=== PATIENT | female | born 1955 | race Caucasian/White ===

== ENCOUNTER 2017-07-16 11:53 | Emergency (ER) | payer MEDICARE, MEDICAID ==
[~2017-07-16] VITALS: Ht 167.6 cm; Wt 83.6 kg
[~2017-07-16 11:53] MED LIST: ACET325T14 PO; ALBU2.5V NEB; ALLO300T PO; ASPI-496 PO; ASPI-650 PO; BACL-19 PO; BISA10SU54 PR; CALC-141 PO; CALC650T7 PO; CLOB15CR19 TP; DOCU100C33 PO; ERGO500017 PO; FAMO20TA7 PO; FLUD0.1T PO; FLUO20CA8 PO; FOLI1CAP9 PO; GABA-826 PO; HYDR-3237 PO; HYDR-3245 PO; LEVE10007 PO; LEVE500T53 PO; LEVO137T3 PO; LEVO75TA PO; LIDO5CRE14 TP; LIOT25TA3 PO; LORA1TAB PO; LORA2VIA4 PO; LOVA40TA2 PO; METH500T7 PO; ONDA4VIA4 PO; PANT40TA3 PO; POLY17PO5 PO; PSEU60TA PO; RALO60TA PO; SENN1TAB7 PO; TIOT18CA INH; WARF1TAB7 PO; WARF6TAB7 PO; ZOLP10TA PO
[2017-07-16] MEDS ORDERED: SODIUM CHLORIDE 0.9%, 250ML IVBOLUS ONE (14:00)
[2017-07-16 15:41] VITALS: BP 91/45
== END 2017-07-16 15:43 | disposition home or self-care (01) ==
LOC: ED 15:35
DX: J06.9 Acute upper respiratory infection, unspecified (principal); I95.3 Hypotension of hemodialysis; J44.9 Chronic obstructive pulmonary disease, unspecified; K21.9 Gastro-esophageal reflux disease without esophagitis; E78.5 Hyperlipidemia, unspecified; E87.5 Hyperkalemia; M19.049 Primary osteoarthritis, unspecified hand; I10 Essential (primary) hypertension; Z86.718 Personal history of other venous thrombosis and embolism; Z90.49 Acquired absence of other specified parts of digestive tract; Z87.891 Personal history of nicotine dependence
CPT/HCPCS: 71046; 96360; 99284; J7050

== ENCOUNTER 2018-05-18 08:38 | Inpatient (IN) | payer MEDICARE, MEDICAID ==
[~2018-05-18] VITALS: Ht 167.6 cm; Wt 86.5 kg
[~2018-05-18 08:38] MED LIST changes: -LORA2VIA4 PO; +LORA2VIA6 PO; -ONDA4VIA4 PO; +ONDA4VIA8 PO; -SENN1TAB7 PO; +SENN1TAB8 PO; -WARF1TAB7 PO; +WARF1TAB74 PO; +WARF6TAB47 PO; -WARF6TAB7 PO
--- NOTE | 2018-05-18 08:52 | NUR ---
62 YR OLD FEMALE ARRIVED VIA EMS WITH C/O WEAKNESS AND PRODUCTIVE COUGH WITH GOULD PHLEGM FOR LAST COUPLE OF DAYS. PT RECEIVED DIALYSIS ON WEDNESDAY WAS DUE TODAY AT 0500. PT IN NO ACUTE DISTRESS. PLACED ON MONITORS. PORTABLE CXR COMPLETED.
--- NOTE | 2018-05-18 09:09 | NUR ---
SBAR RPT REC'D FROM ANTONIO COLLINS. ASSUMED PT CARE.
--- NOTE | 2018-05-18 09:17 | NUR ---
DR ROMERO AT BEDSIDE. PT C/O DUVALL STATES IT STARTED AFTER SHE WAS PLACED ON OXYGEN. CURRENT SP02 96% ON 2L, O2 DECREASED TO 1L. PT ASSESSMENT REVIEWED, POC DISCUSSED.
[2018-05-18] MEDS ORDERED: methylPREDNISolone SOD SUCC 125 MG/2 ML IVP ONE (09:30)
[2018-05-18] MEDS ORDERED: SODIUM CHLORIDE FLUSH 10ML SYR IVF ONE (09:30)
[2018-05-18] MEDS ORDERED: ALBUTEROL SULFATE 2.5 MG/3 ML NPPB ONE (09:30)
[2018-05-18] MEDS ORDERED: ALBUTEROL SULFATE 2.5 MG/3 ML ONE (09:33)
[2018-05-18] MEDS ORDERED: methylPREDNISolone SOD SUCC 125 MG/2 ML ONE (09:42)
--- NOTE | 2018-05-18 09:46 | NUR ---
RT AT BEDSIDE. BREATHING TREATMENT IN PROGRESS. PT TO TRIAL ON RA FOLLOWING TREATMENT
[2018-05-18 09:50] LABS: BASOPHILS # (AUTO) 0.02 x10^3/uL (0-0.1); BASOPHILS % (AUTO) 0 % (0-1); EOSINOPHILS % (AUTO) 0 % (1-7); LYMPHOCYTES # (AUTO) 0.58 x10^3/uL (1-3.4); LYMPHOCYTES % (AUTO) 7 % (22-44); MD NO; MEAN CORPUSCULAR HEMOGLOBIN 34.9 pg (27.0-34.8); MEAN CORPUSCULAR HGB CONC 32.5 g/dL (32.4-35.8); MEAN CORPUSCULAR VOLUME 107.1 fL (80-100); MEAN PLATELET VOLUME 6.9 fL (7.4-10.4); MONOCYTES # (AUTO) 0.37 x10^3/uL (0.2-0.8); MONOCYTES % (AUTO) 5 % (2-9); NEUTROPHILS # (AUTO) 7.26 x10^3/uL (1.8-6.8); NEUTROPHILS % (AUTO) 88 % (42-75); PLATELET COUNT 172 x10^3/uL (130-400); RED BLOOD COUNT 3.48 x10^6/uL (3.82-5.3); RED CELL DISTRIBUTION WIDTH 16.7 % (9.6-15.2)
--- NOTE | 2018-05-18 10:16 | NUR ---
PT TRIALED ON RA, SP02 = 85, 02 1.5L NC PLACED WITH EFFECT. TOYA AGUIRRE UPDATED.
[2018-05-18 10:25] LABS: TROPONIN I 0.024 ng/mL (0.000-0.045)
[2018-05-18 10:33] LABS: ALBUMIN 3.2 g/dL (3.4-5.0); ANION GAP 10 mmol/L (5-15); CALCIUM 8.2 mg/dL (8.5-10.1); CHLORIDE 97 mmol/L (98-107)
[2018-05-18 10:35] LABS: ALANINE AMINOTRANSFERASE 21 U/L (12-78); CREATININE 8.63 mg/dL (0.55-1.02)
[2018-05-18 10:37] LABS: ALKALINE PHOSPHATASE 84 U/L (45-117); BILIRUBIN,TOTAL 0.4 mg/dL (0.2-1.0); TOTAL PROTEIN 6.5 g/dL (6.4-8.2)
--- NOTE | 2018-05-18 11:15 | NUR ---
PT RESTING WITH EYES CLOSED, 30 SEC PERIODS OF SLEEP APNEA NOTED WITH SP02 DROP TO 87%, RECOVERS W/O INTERVENTION. PT ARROUSES TO VERBAL STIM. NAD NOTED. CALL LIGHT W/I REACH. PT AWARE OF PLAN FOR HOSPITAL ADMISSION
[2018-05-18 12:48] VITALS: BP 86/55
[2018-05-18] MEDS ORDERED: GABAPENTIN 300 MG CAPSULE PO PRN (14:30)
[2018-05-18] MEDS ORDERED: DOCUSATE 100 MG CAPSULE PO PRN (14:30)
[2018-05-18] MEDS ORDERED: morphine SULFATE 10 MG/ML, 1ML IVPush PRN (14:30)
[2018-05-18] MEDS ORDERED: POLYETHYLENE GLYCOL 17 GM PACKET PO PRN (14:30)
[2018-05-18] MEDS ORDERED: hydrALAzine 20 MG/ML, 1ML IVPush PRN (14:30)
[2018-05-18] MEDS ORDERED: BISACODYL 10 MG SUPP PR PRN (14:30)
[2018-05-18] MEDS ORDERED: ACETAMINOPHEN 325 MG TABLET PO PRN (14:30)
[2018-05-18] MEDS ORDERED: LABETALOL 5MG/ML, 20ML IVPush PRN (14:30)
[2018-05-18] MEDS ORDERED: OXYcodone IR 5MG TABLET PO PRN (14:30)
[2018-05-18] MEDS ORDERED: ALBUTEROL/IPRATROPIUM 2.5MG/0.5MG, 3 ML ONE (15:32)
[2018-05-18 15:39] LABS: FREE T4 (FREE THYROXINE) 1.26 ng/dL (0.76-1.46); THYROID STIMULATING HORMONE 1.84 mIU/L (0.358-3.740)
[2018-05-18] MEDS: ALBUTEROL/IPRATROPIUM 2.5MG/0.5MG, 3 ML NPPB SCH ×2 (15:40→16:58)
[2018-05-18 15:45] LABS: HEMOGLOBIN A1C 4.9 % (4.2-6.3)
[2018-05-18] MEDS ORDERED: ALBUTEROL/IPRATROPIUM 2.5MG/0.5MG, 3 ML NPPB PRN (16:00)
[2018-05-18] MEDS ORDERED: MIDO5TAB2 PO (16:42)
[2018-05-18] MEDS ORDERED: FLUO20CA19 PO (16:42)
[2018-05-18] MEDS ORDERED: NALO25TA PO (16:42)
[2018-05-18] MEDS ORDERED: LEVO137T2 PO (16:42)
[2018-05-18] MEDS ORDERED: OXYC-307 PO (16:42)
[2018-05-18] MEDS ORDERED: GABA-826 PO ×2 (16:42)
[2018-05-18] MEDS ORDERED: RALO60TA PO (16:42)
[2018-05-18] MEDS ORDERED: FAMO20TA37 PO (16:42)
[2018-05-18] MEDS ORDERED: LEVE750T8 PO (16:42)
[2018-05-18] MEDS ORDERED: ALLO300T PO (16:42)
[2018-05-18] MEDS: HEPARIN 5,000 UNITS/ML, 1ML SQ SCH (17:55)
[2018-05-18 18:49] VITALS: BP 81/43
[2018-05-18 19:45] VITALS: BP 131/73
[2018-05-18] MEDS: LOVASTATIN 40 MG TABLET PO SCH (21:20)
[2018-05-18] MEDS: LEVETIRACETAM 500 MG TABLET PO SCH (21:20)
[2018-05-18] MEDS: GABAPENTIN 100 MG CAPSULE PO SCH (21:21)
[2018-05-18] MEDS: MIDODRINE 5 MG TABLET PO SCH (21:21)
[2018-05-18] MEDS: FAMOTIDINE 20 MG TABLET PO SCH (21:21)
[2018-05-18] MEDS ORDERED: OMNIPAQUE 350 MG/ML, 100ML BOTTLE ONE (22:15)
[2018-05-19 02:38] VITALS: BP 90/54
[2018-05-19 05:45] LABS: MEAN CORPUSCULAR HEMOGLOBIN 35.5 pg (27.0-34.8); MEAN CORPUSCULAR HGB CONC 32.9 g/dL (32.4-35.8); MEAN CORPUSCULAR VOLUME 107.9 fL (80-100); MEAN PLATELET VOLUME 7.2 fL (7.4-10.4); PLATELET COUNT 177 x10^3/uL (130-400); RED BLOOD COUNT 3.18 x10^6/uL (3.82-5.3); RED CELL DISTRIBUTION WIDTH 16.7 % (9.6-15.2)
[2018-05-19] MEDS: LEVOTHYROXINE 137 MCG TABLET PO SCH (05:57)
[2018-05-19] MEDS: ASPIRIN 325 MG TABLET EC PO SCH (05:57)
[2018-05-19 05:59] LABS: MD YES
[2018-05-19] MEDS: ALBUTEROL/IPRATROPIUM 2.5MG/0.5MG, 3 ML NPPB SCH ×4 (06:00→21:00)
[2018-05-19 06:01] LABS: ANISOCYTOSIS 1+; BANDS%(MANUAL) 7 % (0-7); LYMPH#(MANUAL) 0.52 x10^3/uL (1-3.4); LYMPHS% (MANUAL) 4 % (22-44); MONOS#(MANUAL) 0.13 x10^3/uL (0.3-2.7); MONOS% (MANUAL) 1 % (2-9); SEG#(MANUAL) 11.35 x10^3/uL (1.8-6.8); SEGS% (MANUAL) 88 % (42-75)
[2018-05-19 06:02] LABS: <PLATELET ESTIMATE> ADEQUATE; <PLT MORPHOLOGY> NORMAL PLT MORPH
[2018-05-19 06:15] LABS: CHLORIDE 95 mmol/L (98-107)
[2018-05-19 06:43] LABS: ALANINE AMINOTRANSFERASE 19 U/L (12-78); ALBUMIN 2.8 g/dL (3.4-5.0); ALKALINE PHOSPHATASE 83 U/L (45-117); ANION GAP 11 mmol/L (5-15); BILIRUBIN,TOTAL 0.3 mg/dL (0.2-1.0); CALCIUM 7.7 mg/dL (8.5-10.1); CHOL/HDL RATIO 2.9; CHOLESTEROL, TOTAL 107 mg/dL (140-239); CREATININE 5.34 mg/dL (0.55-1.02); HDL CHOL % 35 % (28-40); HDL CHOLESTEROL (DIRECT) 37 mg/dL (40-60); LDL CHOLESTEROL,CALCULATED 50 mg/dL (54-169); LDL/HDL RATIO 1.4 (0.5-3.0); TOTAL PROTEIN 6.5 g/dL (6.4-8.2); TRIGLYCERIDES 100 mg/dL (50-200); VLDL CHOLESTEROL 20 mg/dL (0-25)
[2018-05-19 08:59] VITALS: BP 73/40
[2018-05-19] MEDS: LEVETIRACETAM 500 MG TABLET PO SCH ×2 (09:02→20:34)
[2018-05-19] MEDS: MIDODRINE 5 MG TABLET PO SCH ×2 (09:03→20:34)
[2018-05-19] MEDS: GABAPENTIN 100 MG CAPSULE PO SCH ×3 (09:03→20:34)
[2018-05-19] MEDS: FAMOTIDINE 20 MG TABLET PO SCH ×2 (09:04→20:34)
[2018-05-19] MEDS: RALOXIFENE 60 MG TABLET PO SCH (09:04)
[2018-05-19] MEDS: ALLOPURINOL 300 MG TABLET PO SCH (09:04)
[2018-05-19] MEDS: FLUOXETINE HCL 20 MG CAPSULE PO SCH (09:04)
[2018-05-19] MEDS: HEPARIN 5,000 UNITS/ML, 1ML SQ SCH ×3 (09:08→16:30)
[2018-05-19] MEDS: FLUDROCORTISONE 0.1 MG TABLET PO PRN (10:06)
[2018-05-19 10:55] VITALS: BP 78/44
[2018-05-19] MEDS ORDERED: FLUDROCORTISONE 0.1 MG TABLET PO ONE (13:00)
[2018-05-19 13:55] VITALS: BP 136/88
[2018-05-19 19:17] VITALS: BP 102/65
[2018-05-19] MEDS: LOVASTATIN 40 MG TABLET PO SCH (20:34)
[2018-05-19 22:49] VITALS: BP 94/57
[2018-05-20] VITALS (10 sets, daily range): BP systolic 68–99; BP diastolic 33–60
[2018-05-20] MEDS ORDERED: SODIUM CHLORIDE 0.9%, 500ML IVBOLUS ONE ×2 (01:00→04:00)
[2018-05-20] MEDS: HEPARIN 5,000 UNITS/ML, 1ML SQ SCH ×3 (01:57→16:23)
[2018-05-20] MEDS ORDERED: SODIUM CHLORIDE 0.9% 1,000ML IVBOLUS ONE (02:00)
[2018-05-20] MEDS: SODIUM CHLORIDE 0.9% 1,000 ML IV SCH ×2 (05:14→09:59)
[2018-05-20] MEDS: ASPIRIN 325 MG TABLET EC PO SCH (05:23)
[2018-05-20] MEDS: FLUDROCORTISONE 0.1 MG TABLET PO PRN (05:23)
[2018-05-20] MEDS: LEVOTHYROXINE 137 MCG TABLET PO SCH (05:24)
[2018-05-20] MEDS: ALBUTEROL/IPRATROPIUM 2.5MG/0.5MG, 3 ML NPPB SCH ×4 (07:40→19:39)
[2018-05-20] MEDS: MIDODRINE 5 MG TABLET PO SCH ×2 (09:33→20:35)
[2018-05-20] MEDS: RALOXIFENE 60 MG TABLET PO SCH (09:33)
[2018-05-20] MEDS: FLUDROCORTISONE 0.1 MG TABLET PO SCH ×2 (09:33→20:34)
[2018-05-20] MEDS: FLUOXETINE HCL 20 MG CAPSULE PO SCH (09:33)
[2018-05-20] MEDS: GABAPENTIN 100 MG CAPSULE PO SCH ×2 (09:33)
[2018-05-20] MEDS: ALLOPURINOL 300 MG TABLET PO SCH (09:33)
[2018-05-20] MEDS: LEVETIRACETAM 500 MG TABLET PO SCH ×2 (09:34→20:33)
[2018-05-20] MEDS ORDERED: GABAPENTIN MC SCH (11:30)
[2018-05-20] MEDS ORDERED: ARANESP 60 MCG/ML **ESRD SQ SCH (12:00)
[2018-05-20] MEDS: methylPREDNISolone SOD SUCC 40 MG/ML IV SCH (14:49)
[2018-05-20] MEDS: CEFTRIAXONE PMX 1GM/50ML 50 ML IV SCH (14:49)
[2018-05-20] MEDS: FAMOTIDINE 20 MG TABLET PO SCH (20:33)
[2018-05-20] MEDS: LOVASTATIN 40 MG TABLET PO SCH (20:33)
[2018-05-20] MEDS: GABAPENTIN 300 MG CAPSULE PO SCH (20:35)
[2018-05-21] MEDS: HEPARIN 5,000 UNITS/ML, 1ML SQ SCH ×3 (00:37→16:53)
[2018-05-21] MEDS: methylPREDNISolone SOD SUCC 40 MG/ML IV SCH ×2 (00:38→11:47)
[2018-05-21 01:34] VITALS: BP 96/58
[2018-05-21] MEDS ORDERED: SODIUM CHLORIDE 0.9% 1,000 ML IV SCH (04:00)
[2018-05-21 05:25] LABS: CALCIUM 7.3 mg/dL (8.5-10.1); CHLORIDE 99 mmol/L (98-107)
[2018-05-21 05:31] LABS: % IRON SATURATION 14 % (20-55); ALANINE AMINOTRANSFERASE 23 U/L (12-78); ALBUMIN 2.6 g/dL (3.4-5.0); ALKALINE PHOSPHATASE 65 U/L (45-117); ANION GAP 7 mmol/L (5-15); BILIRUBIN,TOTAL 0.2 mg/dL (0.2-1.0); CREATININE 4.92 mg/dL (0.55-1.02); IRON LEVEL 27 mcg/dL (50-170); TOTAL IRON BINDING CAPACITY 188 mcg/dL (250-450); TOTAL PROTEIN 6.3 g/dL (6.4-8.2)
[2018-05-21] MEDS: LEVOTHYROXINE 137 MCG TABLET PO SCH (05:35)
[2018-05-21] MEDS: ASPIRIN 325 MG TABLET EC PO SCH (05:35)
[2018-05-21 05:39] LABS: MEAN CORPUSCULAR HEMOGLOBIN 34.4 pg (27.0-34.8); MEAN CORPUSCULAR HGB CONC 31.8 g/dL (32.4-35.8); MEAN CORPUSCULAR VOLUME 108.5 fL (80-100); MEAN PLATELET VOLUME 7.2 fL (7.4-10.4); PLATELET COUNT 163 x10^3/uL (130-400); RED BLOOD COUNT 3.12 x10^6/uL (3.82-5.3); RED CELL DISTRIBUTION WIDTH 16.6 % (9.6-15.2)
[2018-05-21 06:15] LABS: BASOPHILS % (AUTO) 0 % (0-1); EOSINOPHILS % (AUTO) 0 % (1-7); LYMPHOCYTES % (AUTO) 6 % (22-44); MD SCAN; MONOCYTES # (AUTO) 0.06 x10^3/uL (0.2-0.8); MONOCYTES % (AUTO) 1 % (2-9); NEUTROPHILS # (AUTO) 6.29 x10^3/uL (1.8-6.8); NEUTROPHILS % (AUTO) 93 % (42-75)
[2018-05-21] MEDS: ALBUTEROL/IPRATROPIUM 2.5MG/0.5MG, 3 ML NPPB SCH ×4 (07:00→19:50)
[2018-05-21 07:10] VITALS: BP 99/63
[2018-05-21] MEDS: AZITHROMYCIN 500 MG TABLET PO SCH (08:24)
[2018-05-21] MEDS: LEVETIRACETAM 500 MG TABLET PO SCH ×2 (08:24→20:05)
[2018-05-21] MEDS: ALLOPURINOL 300 MG TABLET PO SCH (08:24)
[2018-05-21] MEDS: RALOXIFENE 60 MG TABLET PO SCH (08:25)
[2018-05-21] MEDS: FLUDROCORTISONE 0.1 MG TABLET PO SCH (08:25)
[2018-05-21] MEDS: MIDODRINE 5 MG TABLET PO SCH ×3 (08:25→20:06)
[2018-05-21] MEDS: FLUOXETINE HCL 20 MG CAPSULE PO SCH (08:25)
[2018-05-21] MEDS: CEFTRIAXONE PMX 1GM/50ML 50 ML IV SCH (11:47)
[2018-05-21 13:37] VITALS: BP 100/65
[2018-05-21] MEDS: FERROUS GLUCONATE 324 MG TABLET PO SCH ×2 (13:42→16:52)
[2018-05-21 19:15] VITALS: BP 78/33
[2018-05-21] MEDS: LOVASTATIN 40 MG TABLET PO SCH (20:06)
[2018-05-21] MEDS: GABAPENTIN 300 MG CAPSULE PO SCH (20:06)
[2018-05-21] MEDS: FAMOTIDINE 20 MG TABLET PO SCH (20:07)
[2018-05-21 20:15] VITALS: BP 88/51
[2018-05-21] MEDS ORDERED: ALLOPURINOL 100 MG TABLET PO SCH (21:00)
[2018-05-22] MEDS: HEPARIN 5,000 UNITS/ML, 1ML SQ SCH ×3 (00:24→16:00)
[2018-05-22] MEDS: methylPREDNISolone SOD SUCC 40 MG/ML IV SCH ×2 (00:24→11:38)
[2018-05-22 01:08] VITALS: BP 93/52
[2018-05-22] MEDS: ASPIRIN 325 MG TABLET EC PO SCH (05:51)
[2018-05-22] MEDS: LEVOTHYROXINE 137 MCG TABLET PO SCH (05:51)
[2018-05-22 06:28] LABS: BASOPHILS % (AUTO) 0 % (0-1); EOSINOPHILS % (AUTO) 0 % (1-7); LYMPHOCYTES # (AUTO) 0.53 x10^3/uL (1-3.4); LYMPHOCYTES % (AUTO) 6 % (22-44); MD NO; MEAN CORPUSCULAR HEMOGLOBIN 34.9 pg (27.0-34.8); MEAN CORPUSCULAR HGB CONC 32.2 g/dL (32.4-35.8); MEAN CORPUSCULAR VOLUME 108.3 fL (80-100); MEAN PLATELET VOLUME 7.6 fL (7.4-10.4); MONOCYTES # (AUTO) 0.11 x10^3/uL (0.2-0.8); MONOCYTES % (AUTO) 1 % (2-9); NEUTROPHILS # (AUTO) 8.43 x10^3/uL (1.8-6.8); NEUTROPHILS % (AUTO) 93 % (42-75); PLATELET COUNT 183 x10^3/uL (130-400); RED BLOOD COUNT 2.95 x10^6/uL (3.82-5.3)
[2018-05-22 06:32] LABS: CHLORIDE 98 mmol/L (98-107)
[2018-05-22 06:35] VITALS: BP 96/59
[2018-05-22 06:36] LABS: ALBUMIN 2.5 g/dL (3.4-5.0); ANION GAP 8 mmol/L (5-15); CALCIUM 6.8 mg/dL (8.5-10.1); CREATININE 6.18 mg/dL (0.55-1.02)
[2018-05-22] MEDS: ALBUTEROL/IPRATROPIUM 2.5MG/0.5MG, 3 ML NPPB SCH ×3 (06:46→16:00)
[2018-05-22] MEDS ORDERED: CEFD300C37 PO (08:04)
[2018-05-22] MEDS ORDERED: PRED20TA PO (08:04)
[2018-05-22] MEDS ORDERED: AZIT500T5 PO (08:04)
[2018-05-22] MEDS: MIDODRINE 5 MG TABLET PO SCH ×2 (08:58→16:41)
[2018-05-22] MEDS: FERROUS GLUCONATE 324 MG TABLET PO SCH ×3 (08:58→16:41)
[2018-05-22] MEDS: AZITHROMYCIN 500 MG TABLET PO SCH (08:58)
[2018-05-22] MEDS: LEVETIRACETAM 500 MG TABLET PO SCH (08:58)
[2018-05-22] MEDS: RALOXIFENE 60 MG TABLET PO SCH (08:58)
[2018-05-22] MEDS: FLUOXETINE HCL 20 MG CAPSULE PO SCH (08:58)
[2018-05-22] MEDS: CEFTRIAXONE PMX 1GM/50ML 50 ML IV SCH (11:38)
[2018-05-22 12:19] VITALS: BP 93/58
== END 2018-05-22 18:48 | disposition home health service (06) | DRG 193 ==
LOC: ED 11:08 → EDIP 11:34 → 4EST 12:39
PROVIDERS: ADMIT Internal Medicine; ATTEND Internal Medicine
PROC: 5A1D70Z Performance of Urinary Filtration, Intermittent, Less than 6 Hours Per Day (ICD-10-PCS; principal; 2018-05-18)
PROC: 5A1D70Z Performance of Urinary Filtration, Intermittent, Less than 6 Hours Per Day (ICD-10-PCS; 2018-05-20)
DX: J18.9 Pneumonia, unspecified organism (principal); J96.01 Acute respiratory failure with hypoxia; N18.6 End stage renal disease; D68.69 Other thrombophilia; E46 Unspecified protein-calorie malnutrition; E87.1 Hypo-osmolality and hyponatremia; I12.0 Hypertensive chronic kidney disease with stage 5 chronic kidney disease or end stage renal disease; J44.0 Chronic obstructive pulmonary disease with (acute) lower respiratory infection; J98.11 Atelectasis; J44.1 Chronic obstructive pulmonary disease with (acute) exacerbation; D63.1 Anemia in chronic kidney disease; E03.9 Hypothyroidism, unspecified; E78.5 Hyperlipidemia, unspecified; G25.81 Restless legs syndrome; G40.909 Epilepsy, unspecified, not intractable, without status epilepticus; G47.33 Obstructive sleep apnea (adult) (pediatric); I35.0 Nonrheumatic aortic (valve) stenosis; I48.2 Chronic atrial fibrillation; I95.89 Other hypotension; K21.9 Gastro-esophageal reflux disease without esophagitis; M19.049 Primary osteoarthritis, unspecified hand; M85.80 Other specified disorders of bone density and structure, unspecified site; N25.0 Renal osteodystrophy; Z82.5 Family history of asthma and other chronic lower respiratory diseases; Z86.711 Personal history of pulmonary embolism; Z86.718 Personal history of other venous thrombosis and embolism; Z87.891 Personal history of nicotine dependence; Z95.0 Presence of cardiac pacemaker; Z99.2 Dependence on renal dialysis; M10.9 Gout, unspecified; Z90.49 Acquired absence of other specified parts of digestive tract; Z68.30 Body mass index [BMI] 30.0-30.9, adult; Z88.2 Allergy status to sulfonamides; Z88.8 Allergy status to other drugs, medicaments and biological substances
CPT/HCPCS: 36415; 70450; 71045; 71275; 80053; 80061; 80069; 82306; 82728; 83036; 83540; 83550; 83605; 83735; 83970; 84100; 84439; 84443; 84484; 85025; 86704; 86706; 86803; 87040; 87070; 87205; 87340; 93005; 93306; 94640; 96374; 99285; G0378; J0696; J0882; J1644; J7613; J7620; Q9967; J2920; J2930; J7030; J7040

== ENCOUNTER → 2018-07-08 | Outpatient (CLI) | payer MEDICARE, MEDICAID ==
[~2018-07-08] MED LIST changes: +AZIT500T5 PO; +CEFD300C37 PO; +FAMO20TA37 PO; +FLUO20CA19 PO; +LEVE750T8 PO; +LEVO137T2 PO; +MIDO5TAB2 PO; +NALO25TA PO; +OXYC-307 PO; +PRED20TA PO
== END | disposition home or self-care (01) ==
LOC: CFH 13:33
PROVIDERS: ATTEND Physician Assistant Medical
DX: I08.3 Combined rheumatic disorders of mitral, aortic and tricuspid valves (principal); I12.9 Hypertensive chronic kidney disease with stage 1 through stage 4 chronic kidney disease, or unspecified chronic kidney disease; N18.9 Chronic kidney disease, unspecified; E78.5 Hyperlipidemia, unspecified; J44.1 Chronic obstructive pulmonary disease with (acute) exacerbation; I48.91 Unspecified atrial fibrillation; I25.2 Old myocardial infarction; Z87.891 Personal history of nicotine dependence; Z95.4 Presence of other heart-valve replacement; Z99.2 Dependence on renal dialysis
CPT/HCPCS: 93306

== ENCOUNTER → 2018-11-16 | Outpatient (CLI) | payer MEDICARE, MEDICAID ==
[~2018-11-16] MED LIST changes: +ONDA4VIA60 PO; -ONDA4VIA8 PO; +REGADENOSON 0.4 MG/5 ML SYRINGE ONE; +SENN-177 PO; -SENN1TAB8 PO
== END | disposition home or self-care (01) ==
LOC: CFH 12:35
PROVIDERS: ATTEND Internal Medicine Cardiovascular Disease
DX: R07.89 Other chest pain (principal)
CPT/HCPCS: 78452; 93017; A9502; J2785

== ENCOUNTER → 2019-11-09 | Outpatient (CLI) | payer MEDICARE, MEDICAID ==
[~2019-11-09] MED LIST changes: +AZIT500T10 PO; -AZIT500T5 PO; +FLUO20CA23 PO; -FLUO20CA8 PO; +LIOT25TA12 PO; -LIOT25TA3 PO; -MIDO5TAB2 PO; +MIDO5TAB4 PO; -REGADENOSON 0.4 MG/5 ML SYRINGE ONE
== END | disposition home or self-care (01) ==
LOC: CVU 12:30
PROVIDERS: ATTEND Registered Nurse
DX: I08.3 Combined rheumatic disorders of mitral, aortic and tricuspid valves (principal)
CPT/HCPCS: 93306

== ENCOUNTER → 2020-04-11 | Outpatient (CLI) | payer MEDICARE, MEDICAID ==
[~2020-04-11] MED LIST changes: -NALO25TA PO; +NALO25TA4 PO
== END | disposition home or self-care (01) ==
LOC: CFH 10:11
PROVIDERS: ATTEND Registered Nurse
DX: I08.3 Combined rheumatic disorders of mitral, aortic and tricuspid valves (principal); R07.89 Other chest pain
CPT/HCPCS: 93306

== ENCOUNTER 2020-12-02 10:04 | Inpatient (IN) | payer MEDICAID, MEDICARE ==
[~2020-12-02] VITALS: Ht 167.6 cm; Wt 97.9 kg
[~2020-12-02 10:04] MED LIST changes: +ASPI-1026 PO; -ASPI-650 PO; -CALC650T7 PO; -HYDR-3245 PO; +HYDR1TAB53 PO; +METH-639 PO; -METH500T7 PO; -OXYC-307 PO; +OXYC-380 PO; +[UNRECOGNIZED DRUG - CODE] PO
--- NOTE | 2020-12-02 10:55 | NUR ---
PT IN GOWN IN [facility]. PT ATTACHED TO VS MONITORS AT THIS TIME. PT EDUCATED ON ER PROCESS AND VERBALIZES UNDERSTANDING. PT WITH CALL LIGHT WITHIN REACH AT THIS TIME.
--- NOTE | 2020-12-02 13:50 | NUR ---
dr kim spoke with dr akilah taylor
[2020-12-02] MEDS ORDERED: SODIUM CHLORIDE FLUSH 10ML SYR IVF ONE (14:00)
[2020-12-02 14:37] LABS: ALANINE AMINOTRANSFERASE 33 U/L (12-78); ALBUMIN 3.7 g/dL (3.4-5.0); BASOPHILS % (AUTO) 1 % (0-1); CALCIUM 7.8 mg/dL (8.5-10.1); CHLORIDE 96 mmol/L (98-107); CREATININE 9.28 mg/dL (0.55-1.02); EOSINOPHILS % (AUTO) 3 % (1-7); LYMPHOCYTES % (AUTO) 20 % (22-44); MEAN CORPUSCULAR HEMOGLOBIN 35.8 pg (27.0-34.8); MEAN PLATELET VOLUME 6.9 fL (7.4-10.4); MONOCYTES % (AUTO) 8 % (2-9); NEUTROPHILS % (AUTO) 68 % (42-75); PLATELET COUNT 213 x10^3/uL (130-400); RED BLOOD COUNT 3.59 x10^6/uL (3.82-5.3); RED CELL DISTRIBUTION WIDTH 16.1 % (9.6-15.2)
[2020-12-02 14:39] LABS: ALKALINE PHOSPHATASE 126 U/L (45-117); BILIRUBIN,TOTAL 0.4 mg/dL (0.2-1.0); TOTAL PROTEIN 7.7 g/dL (6.4-8.2)
[2020-12-02 14:48] LABS: ANION GAP 9 mmol/L (5-15); INTERNATIONAL NORMALIZED RATIO 1.35 (0.93-1.1); PROTHROMBIN TIME 14.2 Seconds (9.6-11.5)
--- NOTE | 2020-12-02 15:00 | NUR ---
REPORT OF PT TO ANTONIO DUMONT. ALL QUESTIONS ANSWERED.
--- NOTE | 2020-12-02 15:28 | NUR ---
TASK RN: DIALYSIS NURSE KATIE CALLED TO INFORM THERE IS NO DIALYSIS NURSE AVAILABLE TO COME DOWN TO ED FOR DIALYSIS. INFORMED DR. VALENTIN, PER DR. VALENTIN ADMIT ORDER WILL BE PLACED NOW FOR PT TO TRANSFERRED AND HAVE HD ON ADMITTED UNIT.
[2020-12-02] MEDS ORDERED: ALBUTEROL 0.5%, 20ML NPPB ONE (15:30)
[2020-12-02] MEDS ORDERED: ACETAMINOPHEN 325 MG TABLET PO PRN (15:30)
[2020-12-02] MEDS ORDERED: LABETALOL 5MG/ML, 20ML IVPush PRN (15:30)
[2020-12-02] MEDS ORDERED: ONDANSETRON 2MG/ML, 2ML IVPush PRN (15:30)
[2020-12-02] MEDS ORDERED: morphine SULFATE 10 MG/ML, 1ML IVPush PRN (15:30)
[2020-12-02 15:33] LABS: <PLATELET ESTIMATE> ADEQUATE; SMALL PLATELETS 1+
--- NOTE | 2020-12-02 16:12 | NUR ---
REPORT TO 491-2 OREN. IN ROOM TO PLACE A TEMP DIALYSIS CATH
--- NOTE | 2020-12-02 16:35 | NUR ---
PT CARE TRAFERED TO IR RN. IR STATED THEY WILL BRING PT TO 491-2 WHEN DONE WITH THERE PROCEDURE. PT WHEELCHAIR AND CHART BROUGHT TO 491-2 AND RN OREN
--- NOTE | 2020-12-02 16:35 | NUR ---
IR STATED THEY WILL TAKE PT TO IR FOR TEMP DIALYSIS CATH DUE TO DIFFICULTY WITH FISTULA ON LEFT AND PT PACEMAKER ON RIGHT SIDE.
[2020-12-02 19:38] VITALS: BP 116/69
[2020-12-03 02:00] VITALS: BP 91/57
[2020-12-03 05:45] LABS: CHLORIDE 98 mmol/L (98-107)
[2020-12-03 05:53] LABS: ALANINE AMINOTRANSFERASE 31 U/L (12-78); ALBUMIN 3.3 g/dL (3.4-5.0); ALKALINE PHOSPHATASE 104 U/L (45-117); ANION GAP 7 mmol/L (5-15); BILIRUBIN,TOTAL 0.6 mg/dL (0.2-1.0); CALCIUM 7.8 mg/dL (8.5-10.1); CREATININE 5.62 mg/dL (0.55-1.02); TOTAL PROTEIN 7.1 g/dL (6.4-8.2)
[2020-12-03] MEDS ORDERED: SEVE800T7 PO (07:28)
[2020-12-03] MEDS ORDERED: LEVE250T5 PO (07:28)
[2020-12-03 07:35] VITALS: BP 99/57
[2020-12-03] MEDS ORDERED: TEMPLATE NON-FORMULARY MED. (Naloxegol Oxalate (Movantik) 25 MG) PO SCH (09:30)
[2020-12-03] MEDS: MIDODRINE 5 MG TABLET PO SCH ×2 (09:54→20:35)
[2020-12-03] MEDS: GABAPENTIN 100 MG CAPSULE PO SCH ×2 (09:54→20:37)
[2020-12-03] MEDS: FLUOXETINE HCL 20 MG CAPSULE PO SCH (09:54)
[2020-12-03] MEDS: LEVETIRACETAM 500 MG TABLET PO SCH ×2 (09:54→20:34)
[2020-12-03] MEDS: LEVOTHYROXINE 137 MCG TABLET PO SCH (09:55)
[2020-12-03] MEDS: MIDODRINE 5 MG TABLET PO PRN (11:19)
[2020-12-03] MEDS: SEVELAMER CARBONATE 800MG TAB PO SCH ×2 (13:54→16:53)
[2020-12-03 14:44] VITALS: BP 99/63
[2020-12-03] MEDS: RALOXIFENE 60 MG TABLET PO SCH (16:54)
[2020-12-03] MEDS: POLYETHYLENE GLYCOL 17 GM PACKET PO PRN (16:54)
[2020-12-03 19:35] VITALS: BP 101/56
[2020-12-03] MEDS: LOVASTATIN 40 MG TABLET PO SCH (20:35)
[2020-12-04 01:50] VITALS: BP 99/54
[2020-12-04 05:48] LABS: BASOPHILS % (AUTO) 1 % (0-1); EOSINOPHILS % (AUTO) 4 % (1-7); LYMPHOCYTES % (AUTO) 18 % (22-44); MEAN CORPUSCULAR HEMOGLOBIN 36.2 pg (27.0-34.8); MEAN CORPUSCULAR HGB CONC 33.1 g/dL (32.4-35.8); MONOCYTES % (AUTO) 9 % (2-9); NEUTROPHILS % (AUTO) 68 % (42-75); PLATELET COUNT 178 x10^3/uL (130-400); RED BLOOD COUNT 3.25 x10^6/uL (3.82-5.3)
[2020-12-04] MEDS: LEVOTHYROXINE 137 MCG TABLET PO SCH (05:53)
[2020-12-04 06:16] LABS: ALBUMIN 4.3 g/dL (3.4-5.0); ANION GAP 5 mmol/L (5-15); CALCIUM 8.2 mg/dL (8.5-10.1); CHLORIDE 97 mmol/L (98-107)
[2020-12-04 06:24] LABS: % IRON SATURATION 39 % (20-55); CREATININE 4.83 mg/dL (0.55-1.02); IRON LEVEL 68 mcg/dL (50-170); TOTAL IRON BINDING CAPACITY 173 mcg/dL (250-450)
[2020-12-04 07:15] VITALS: BP 95/61
[2020-12-04] MEDS: SEVELAMER CARBONATE 800MG TAB PO SCH ×3 (08:00→17:00)
[2020-12-04] MEDS: FLUOXETINE HCL 20 MG CAPSULE PO SCH (08:38)
[2020-12-04] MEDS: LEVETIRACETAM 500 MG TABLET PO SCH ×2 (08:38→20:15)
[2020-12-04] MEDS: ALBUMIN HUMAN 25% 100 ML IV PRN ×2 (08:50→10:25)
[2020-12-04] MEDS: MIDODRINE 5 MG TABLET PO SCH ×2 (08:51→20:14)
[2020-12-04] MEDS: GABAPENTIN 100 MG CAPSULE PO SCH ×2 (09:00→20:14)
[2020-12-04] MEDS: RALOXIFENE 60 MG TABLET PO SCH (09:00)
[2020-12-04] MEDS ORDERED: CHLORHEXIDINE 15 ML UDC PO ONE (12:30)
[2020-12-04] MEDS ORDERED: EPINEPHRINE 1 MG/ML, 1ML ONE (13:38)
[2020-12-04] MEDS ORDERED: PROTAMINE SULFATE 10 MG/ML, 5ML ONE (13:38)
[2020-12-04] MEDS ORDERED: PAPAVERINE 30 MG/ML, 2ML ONE (13:38)
[2020-12-04] MEDS ORDERED: HEPARIN 1,000 UNITS/ML, 10ML ONE (13:38)
[2020-12-04] MEDS ORDERED: BUPIVACAINE/PF 0.5% ONE (13:38)
[2020-12-04] MEDS ORDERED: THROMBIN 20,000 UNIT VIAL TP ONE (13:38)
[2020-12-04] MEDS ORDERED: VISIPAQUE 270 MG/ML, 50ML BOTTLE ONE (13:39)
[2020-12-04] MEDS ORDERED: ONDANSETRON 2MG/ML, 2ML ONE (14:27)
[2020-12-04] MEDS ORDERED: PROPOFOL 10 MG/ML, 20ML ONE (14:27)
[2020-12-04] MEDS ORDERED: CEFAZOLIN 1,000 MG ONE (14:27)
[2020-12-04] MEDS ORDERED: LIDOCAINE 1%, 20ML ONE (14:27)
[2020-12-04] MEDS ORDERED: LORazepam 2 MG/ML, 1ML IVPush PRN (14:30)
[2020-12-04] MEDS ORDERED: ACETAMINOPHEN 325 MG TABLET PO PRN (14:30)
[2020-12-04] MEDS ORDERED: PROMETHAZINE 25 MG/ML, 1ML IVPush PRN (14:30)
[2020-12-04] MEDS ORDERED: METHOCARBAMOL 1,000 MG in DEXTROSE 5% 100 ML IV PRN (14:30)
[2020-12-04] MEDS ORDERED: ONDANSETRON 2MG/ML, 2ML IVPush PRN (14:30)
[2020-12-04] MEDS ORDERED: OXYcodone 5 MG/5 ML ORAL.SOL UDC PO PRN (14:30)
[2020-12-04] MEDS ORDERED: HYDROmorphone 1 MG/ML, 1ML INJ IVPush PRN (14:30)
[2020-12-04] MEDS ORDERED: MEPERIDINE/PF 25MG/0.5ML IVPush PRN (14:30)
[2020-12-04] MEDS ORDERED: FENTANYL PF 100 MCG/2ML IV PRN (14:30)
[2020-12-04] MEDS ORDERED: FENTANYL PF 250 MCG/5ML ONE (15:40)
[2020-12-04 16:44] VITALS: BP 91/58
[2020-12-04] MEDS ORDERED: SODIUM CHLORIDE 0.9%, 250ML IVBOLUS ONE (17:30)
[2020-12-04 18:52] VITALS: BP 90/46
[2020-12-04] MEDS ORDERED: ALBUMIN HUMAN 25% 100 ML IV ONE (19:00)
[2020-12-04] MEDS: LOVASTATIN 40 MG TABLET PO SCH (20:13)
[2020-12-04] MEDS: OXYcodone IR 5MG TABLET PO PRN (20:14)
[2020-12-04 20:18] VITALS: BP 87/59
[2020-12-05] VITALS (13 sets, daily range): BP systolic 70–103; BP diastolic 38–62
[2020-12-05] MEDS: MIDODRINE 5 MG TABLET PO PRN ×2 (02:38→13:39)
[2020-12-05] MEDS: OXYcodone IR 5MG TABLET PO PRN (02:38)
[2020-12-05 05:21] LABS: BASOPHILS % (AUTO) 1 % (0-1); EOSINOPHILS % (AUTO) 4 % (1-7); LYMPHOCYTES % (AUTO) 19 % (22-44); MEAN CORPUSCULAR HEMOGLOBIN 36.2 pg (27.0-34.8); MEAN PLATELET VOLUME 7.2 fL (7.4-10.4); MONOCYTES % (AUTO) 10 % (2-9); NEUTROPHILS % (AUTO) 66 % (42-75); PLATELET COUNT 156 x10^3/uL (130-400); RED BLOOD COUNT 3.15 x10^6/uL (3.82-5.3); RED CELL DISTRIBUTION WIDTH 16.2 % (9.6-15.2)
[2020-12-05] MEDS: LEVOTHYROXINE 137 MCG TABLET PO SCH (05:39)
[2020-12-05 05:42] LABS: CHLORIDE 99 mmol/L (98-107)
[2020-12-05 06:03] LABS: ALBUMIN 4.7 g/dL (3.4-5.0); ANION GAP 5 mmol/L (5-15); CALCIUM 8.2 mg/dL (8.5-10.1)
[2020-12-05] MEDS: MIDODRINE 5 MG TABLET PO SCH ×2 (07:50→20:13)
[2020-12-05] MEDS: FLUOXETINE HCL 20 MG CAPSULE PO SCH (07:50)
[2020-12-05] MEDS: GABAPENTIN 100 MG CAPSULE PO SCH ×2 (07:50→20:13)
[2020-12-05] MEDS: LEVETIRACETAM 500 MG TABLET PO SCH ×2 (07:51→20:13)
[2020-12-05] MEDS: RALOXIFENE 60 MG TABLET PO SCH (07:52)
[2020-12-05] MEDS: SEVELAMER CARBONATE 800MG TAB PO SCH ×3 (08:59→17:50)
[2020-12-05] MEDS ORDERED: WARFARIN 3 MG TABLET PO-COUM SCH (18:00)
[2020-12-05 18:43] LABS: INTERNATIONAL NORMALIZED RATIO 1.19 (0.93-1.1); PROTHROMBIN TIME 12.6 Seconds (9.6-11.5)
[2020-12-05] MEDS: LOVASTATIN 40 MG TABLET PO SCH (20:12)
[2020-12-06] VITALS (13 sets, daily range): BP systolic 45–90; BP diastolic 28–61
[2020-12-06 05:08] LABS: ALBUMIN 4.2 g/dL (3.4-5.0); ANION GAP 7 mmol/L (5-15); CALCIUM 7.5 mg/dL (8.5-10.1); CHLORIDE 99 mmol/L (98-107); CREATININE 6.28 mg/dL (0.55-1.02)
[2020-12-06] MEDS: LEVOTHYROXINE 137 MCG TABLET PO SCH (05:24)
[2020-12-06] MEDS: MIDODRINE 5 MG TABLET PO SCH ×4 (07:19→20:30)
[2020-12-06] MEDS: SEVELAMER CARBONATE 800MG TAB PO SCH ×3 (07:49→18:00)
[2020-12-06] MEDS: DOCUSATE 50 MG/5 ML, 10ML UDC PO PRN (07:49)
[2020-12-06] MEDS: GABAPENTIN 100 MG CAPSULE PO SCH ×2 (07:49→20:31)
[2020-12-06] MEDS: LEVETIRACETAM 500 MG TABLET PO SCH ×2 (07:49→20:29)
[2020-12-06] MEDS: POLYETHYLENE GLYCOL 17 GM PACKET PO PRN (07:50)
[2020-12-06] MEDS: FLUOXETINE HCL 20 MG CAPSULE PO SCH (07:50)
[2020-12-06] MEDS: RALOXIFENE 60 MG TABLET PO SCH (07:50)
[2020-12-06 15:50] LABS: INTERNATIONAL NORMALIZED RATIO 1.1 (0.93-1.1); PROTHROMBIN TIME 11.7 Seconds (9.6-11.5)
[2020-12-06] MEDS ORDERED: WARFARIN 5 MG TABLET PO-COUM ONE (17:51)
[2020-12-06] MEDS ORDERED: WARFARIN 7.5 MG TABLET PO-COUM ONE (18:00)
[2020-12-06] MEDS ORDERED: OXYcodone IR 5MG TABLET PO PRN (19:30)
[2020-12-06] MEDS: LOVASTATIN 40 MG TABLET PO SCH (20:29)
[2020-12-07 01:21] VITALS: BP 89/52
[2020-12-07 05:39] LABS: BASOPHILS % (AUTO) 1 % (0-1); EOSINOPHILS % (AUTO) 4 % (1-7); LYMPHOCYTES % (AUTO) 14 % (22-44); MEAN CORPUSCULAR HEMOGLOBIN 36.1 pg (27.0-34.8); MEAN CORPUSCULAR HGB CONC 33.2 g/dL (32.4-35.8); MEAN PLATELET VOLUME 7.6 fL (7.4-10.4); MONOCYTES % (AUTO) 9 % (2-9); NEUTROPHILS % (AUTO) 72 % (42-75); PLATELET COUNT 133 x10^3/uL (130-400); RED BLOOD COUNT 3.04 x10^6/uL (3.82-5.3); RED CELL DISTRIBUTION WIDTH 16.2 % (9.6-15.2)
[2020-12-07 05:45] LABS: INTERNATIONAL NORMALIZED RATIO 1.13 (0.93-1.1)
[2020-12-07 05:46] LABS: ALBUMIN 3.9 g/dL (3.4-5.0); ANION GAP 5 mmol/L (5-15); CALCIUM 7.8 mg/dL (8.5-10.1); CHLORIDE 99 mmol/L (98-107); CREATININE 4.92 mg/dL (0.55-1.02)
[2020-12-07] MEDS: LEVOTHYROXINE 137 MCG TABLET PO SCH (06:15)
[2020-12-07 08:10] VITALS: BP 79/51
[2020-12-07] MEDS: MIDODRINE 5 MG TABLET PO SCH ×3 (09:12→20:25)
[2020-12-07] MEDS: LEVETIRACETAM 500 MG TABLET PO SCH ×2 (09:16→20:25)
[2020-12-07] MEDS: RALOXIFENE 60 MG TABLET PO SCH (09:16)
[2020-12-07] MEDS: GABAPENTIN 100 MG CAPSULE PO SCH ×2 (09:17→20:26)
[2020-12-07] MEDS: SEVELAMER CARBONATE 800MG TAB PO SCH (09:18)
[2020-12-07] MEDS: FLUOXETINE HCL 20 MG CAPSULE PO SCH (09:18)
[2020-12-07 13:41] VITALS: BP 74/49
[2020-12-07] MEDS ORDERED: WARFARIN 5 MG TABLET PO-COUM ONE (17:12)
[2020-12-07] MEDS ORDERED: WARFARIN 10 MG TABLET PO-COUM ONE (18:00)
[2020-12-07] MEDS: LOVASTATIN 40 MG TABLET PO SCH (20:25)
[2020-12-07] MEDS: DOCUSATE 50 MG/5 ML, 10ML UDC PO PRN (20:40)
[2020-12-07] MEDS: POLYETHYLENE GLYCOL 17 GM PACKET PO PRN (20:40)
[2020-12-07 20:41] VITALS: BP 64/31
[2020-12-08 01:38] VITALS: BP 68/39
[2020-12-08 05:25] LABS: CHLORIDE 98 mmol/L (98-107)
[2020-12-08 05:31] LABS: ALBUMIN 3.7 g/dL (3.4-5.0); ANION GAP 9 mmol/L (5-15); CALCIUM 7.5 mg/dL (8.5-10.1); CREATININE 6.58 mg/dL (0.55-1.02)
[2020-12-08] MEDS: LEVOTHYROXINE 137 MCG TABLET PO SCH (05:58)
[2020-12-08 07:15] VITALS: BP 92/60
[2020-12-08 07:37] LABS: INTERNATIONAL NORMALIZED RATIO 1.15 (0.93-1.1); PROTHROMBIN TIME 12.2 Seconds (9.6-11.5)
[2020-12-08 07:55] LABS: BASOPHILS % (AUTO) 1 % (0-1); EOSINOPHILS % (AUTO) 4 % (1-7); LYMPHOCYTES % (AUTO) 13 % (22-44); MEAN CORPUSCULAR HEMOGLOBIN 35.7 pg (27.0-34.8); MEAN CORPUSCULAR HGB CONC 32.9 g/dL (32.4-35.8); MEAN PLATELET VOLUME 7.6 fL (7.4-10.4); MONOCYTES % (AUTO) 7 % (2-9); NEUTROPHILS % (AUTO) 74 % (42-75); PLATELET COUNT 145 x10^3/uL (130-400); RED BLOOD COUNT 3.04 x10^6/uL (3.82-5.3); RED CELL DISTRIBUTION WIDTH 15.6 % (9.6-15.2)
[2020-12-08 08:41] LABS: ANISOCYTOSIS 1+; POLYCHROMASIA 1+
[2020-12-08 08:42] LABS: <PLATELET ESTIMATE> ADEQUATE; <PLT MORPHOLOGY> NORMAL PLT MORPH
[2020-12-08] MEDS: LEVETIRACETAM 500 MG TABLET PO SCH (09:18)
[2020-12-08] MEDS: GABAPENTIN 100 MG CAPSULE PO SCH (09:18)
[2020-12-08] MEDS: RALOXIFENE 60 MG TABLET PO SCH (09:18)
[2020-12-08] MEDS: MIDODRINE 5 MG TABLET PO SCH (09:18)
[2020-12-08] MEDS: FLUOXETINE HCL 20 MG CAPSULE PO SCH (09:18)
[2020-12-08] MEDS ORDERED: MIDO5TAB9 PO (09:48)
[2020-12-08] MEDS ORDERED: WARF-36 PO (09:50)
[2020-12-08] MEDS ORDERED: WARFARIN 10 MG TABLET PO-COUM SCH (18:00)
== END 2020-12-08 12:43 | disposition home health service (06) | DRG 252 ==
LOC: ED 10:29 → EDIP 15:25 → 4EST 17:24
PROVIDERS: ADMIT Hospitalist; ATTEND Hospitalist
PROC: B549ZZA Ultrasonography of Inferior Vena Cava, Guidance (ICD-10-PCS; 2020-12-02)
PROC: 06H033Z Insertion of Infusion Device into Inferior Vena Cava, Percutaneous Approach (ICD-10-PCS; 2020-12-02)
PROC: B5191ZA Fluoroscopy of Inferior Vena Cava using Low Osmolar Contrast, Guidance (ICD-10-PCS; 2020-12-02)
PROC: B31J1ZZ Fluoroscopy of Left Upper Extremity Arteries using Low Osmolar Contrast (ICD-10-PCS; 2020-12-04)
PROC: 03C60ZZ Extirpation of Matter from Left Axillary Artery, Open Approach (ICD-10-PCS; principal; 2020-12-04 14:45)
DX: T82.868A Thrombosis due to vascular prosthetic devices, implants and grafts, initial encounter (principal); N18.6 End stage renal disease; D68.69 Other thrombophilia; I12.0 Hypertensive chronic kidney disease with stage 5 chronic kidney disease or end stage renal disease; I48.20 Chronic atrial fibrillation, unspecified; E87.5 Hyperkalemia; D64.9 Anemia, unspecified; E03.9 Hypothyroidism, unspecified; E78.5 Hyperlipidemia, unspecified; G40.909 Epilepsy, unspecified, not intractable, without status epilepticus; I25.10 Atherosclerotic heart disease of native coronary artery without angina pectoris; I35.0 Nonrheumatic aortic (valve) stenosis; J44.9 Chronic obstructive pulmonary disease, unspecified; M19.049 Primary osteoarthritis, unspecified hand; M89.8X9 Other specified disorders of bone, unspecified site; T45.515A Adverse effect of anticoagulants, initial encounter; Y83.2 Surgical operation with anastomosis, bypass or graft as the cause of abnormal reaction of the patient, or of later complication, without mention of misadventure at the time of the procedure; Z79.01 Long term (current) use of anticoagulants; Z86.711 Personal history of pulmonary embolism; Z86.718 Personal history of other venous thrombosis and embolism; Z87.891 Personal history of nicotine dependence; Z99.2 Dependence on renal dialysis; E53.8 Deficiency of other specified B group vitamins; G47.33 Obstructive sleep apnea (adult) (pediatric); K21.9 Gastro-esophageal reflux disease without esophagitis; M10.9 Gout, unspecified; Z88.1 Allergy status to other antibiotic agents; Z88.2 Allergy status to sulfonamides; Z88.8 Allergy status to other drugs, medicaments and biological substances; Z20.822 Contact with and (suspected) exposure to COVID-19; I95.89 Other hypotension
CPT/HCPCS: 36415; 36556; 75710; 80053; 80069; 82306; 82728; 83540; 83550; 83735; 83970; 84100; 85025; 85610; 85730; 86317; 86704; 87340; 87635; 90935; 93005; 93306; 93986; 93990; G0378; J0171; J0690; J1644; J2405; J2704; J2720; J3010; P9047; Q9966; C1751; C1757; J1642; J2270; J2440; J7050